=== PATIENT | male | born 1940 | race Caucasian/White ===

== ENCOUNTER 2024-06-28 23:39 | Inpatient (IN) | payer OTHER, MEDICARE, MEDICAID ==
[~2024-06-28] VITALS: Ht 177.8 cm; Wt 61.0 kg
[2024-06-29] MEDS: heparin 25,000 UNIT/250ml bag 250 ML IV PRN ×2 (00:14→18:38)
[2024-06-29] MEDS: MESSAGE TO NURSING IV ONE ×3 (00:16→18:03)
[2024-06-29 00:26] LABS: BASOPHILS # (AUTO) 0.1 X10'3 (0-0.2); BASOPHILS % (AUTO) 0.5 % (0-1); EOSINOPHILS % (AUTO) 0.3 % (0-6); HEMATOCRIT 36.4 % (42.0-52.0); HEMOGLOBIN 12.4 g/dl (14.0-17.9); MEAN CORPUSCULAR HEMOGLOBIN 32.5 PG (27.0-31.0); MEAN CORPUSCULAR HGB CONC 34.2 g/dL (33.0-36.5); MONOCYTES # (AUTO) 1.2 X10'3 (0-0.9); MONOCYTES % (AUTO) 12.3 % (2-12); NEUTROPHILS # (AUTO) 6.7 X10'3 (1.8-7.7); NEUTROPHILS % (AUTO) 66.9 % (42-75); PLATELET COUNT 172 X10'3 (140-440); RED BLOOD COUNT 3.83 X10'6 (4.70-6.10); WHITE BLOOD COUNT 10.1 X10'3 (4.5-11.0)
[2024-06-29 00:44] LABS: ALBUMIN 3.6 G/DL (3.4-5.0); ANION GAP 9 (8-16); BLOOD UREA NITROGEN 28 MG/DL (7-18); BUN/CREATININE RATIO 19.9 (10.0-20.0); CALCIUM 8.5 MG/DL (8.5-10.1); CHLORIDE 104 MMOL/L (99-107); CREATININE 1.41 MG/DL (0.60-1.10); GLUCOSE 96 MG/DL (70-104); MAGNESIUM 1.7 MG/DL (1.5-2.4); POTASSIUM 4.2 MMOL/L (3.5-5.1); PRO BRAIN NATRIURETIC PEPTIDE 10118 PG/ML (0-450); SODIUM 141 MMOL/L (135-145); TOTAL CARBON DIOXIDE 28.1 MMOL/L (24-32); eCRCL 33 ML/MIN; eGFR 48 ML/MIN
[2024-06-29 00:54] LABS: PROTHROMBIN TIME 10.8 SECONDS (9.0-12.0)
[2024-06-29] MEDS ORDERED: magnesium hydroxide 30ml (MOM) UD suspension PO PRN (00:55)
[2024-06-29] MEDS ORDERED: potassium Cl 20 mEq SR tablet PO PRN ×2 (00:55)
[2024-06-29] MEDS ORDERED: magnesium sulf-water 2g/50mL 50 ML IV PRN (00:55)
[2024-06-29] MEDS ORDERED: ondansetron/PF 4mg/2ml inj IV PRN (00:55)
[2024-06-29] MEDS ORDERED: magnesium sulf-water 4G/100mL 100 ML IV PRN (00:55)
[2024-06-29] MEDS ORDERED: magnesium Cl slow-release 64mg tablet PO PRN (00:55)
[2024-06-29] MEDS ORDERED: mag hydrox/Alum hydrox/simeth 30ml oral suspension PO PRN (00:55)
[2024-06-29] MEDS ORDERED: acetaminophen 325mg tablet PO PRN (00:55)
[2024-06-29 00:56] LABS: APTT 38 SECONDS (22-32)
[2024-06-29] MEDS: heparin 10,000 units/1 ML INJ IV PRN (01:33)
[2024-06-29] MEDS ORDERED: LISI20TA28 PO (01:54)
[2024-06-29] MEDS ORDERED: FERR325T28 PO (01:54)
[2024-06-29] MEDS ORDERED: [UNRECOGNIZED DRUG - CODE] (01:54)
[2024-06-29] MEDS ORDERED: FISH1CAP17 PO (01:54)
[2024-06-29] MEDS ORDERED: AMLO2.5T2 PO (01:54)
[2024-06-29] MEDS ORDERED: ALEN70TA19 PO (01:54)
[2024-06-29] MEDS ORDERED: ZINC220T4 PO (01:54)
[2024-06-29] MEDS ORDERED: MEMA10TA22 PO (01:54)
[2024-06-29] MEDS: haloperidol lactate 5mg/ml inj IM ONE ×2 (02:30→11:10)
[2024-06-29] MEDS ORDERED: nitroGLYCERIN 0.4mg SUBLingual tab SL PRN (02:40)
[2024-06-29] MEDS ORDERED: non-formulary drug (Alendronate Sodium (Fosamax) 1 TAB) PO SCH (02:40)
[2024-06-29 03:09] LABS: FERRITIN 273 NG/ML (26-388)
[2024-06-29 03:30] LABS: BILIRUBIN,URINE NEGATIVE (Neg); CLARITY,URINE CLEAR (Clear); COLOR,URINE YELLOW (Yellow); GLUCOSE, URINE NEGATIVE (Neg); KETONES,URINE NEGATIVE (Neg); LEUKOCYTE ESTERASE ,URINE NEGATIVE (Neg); NITRITES, URINE NEGATIVE (Neg); OCCULT BLOOD,URINE TRACE-INTACT (Neg); PROTEIN,URINE NEGATIVE (Neg); UROBILINOGEN,URINE 0.2 E.U/dL (0.2-1.0)
[2024-06-29 03:31] LABS: OSMOLALITY 302.5 MOSM/K (280-300)
[2024-06-29] MEDS: normal saline 1000ml 1,000 ML IV SCH (03:31)
[2024-06-29 03:38] LABS: UA COLLECTION TYPE CLN CATCH MIDSTREAM
[2024-06-29 03:39] LABS: BACTERIA,URINE FEW /HPF (Neg); RBC,URINE 0-2 /HPF (0-2); SQUAMOUS EPITHELIAL CELL,UR FEW /LPF (FEW); WBC,URINE 0-4 /HPF (0-4)
[2024-06-29 03:40] LABS: BASOPHILS % (AUTO) 0.5 % (0-1); EOSINOPHILS % (AUTO) 0.3 % (0-6); HEMOGLOBIN 12.2 g/dl (14.0-17.9); LYMPHOCYTES # (AUTO) 1.6 X10'3 (1.1-4.8); LYMPHOCYTES % (AUTO) 17.9 % (21-51); MEAN CORPUSCULAR HEMOGLOBIN 32.1 PG (27.0-31.0); MEAN CORPUSCULAR HGB CONC 33.9 g/dL (33.0-36.5); MEAN CORPUSCULAR VOLUME 94.8 FL (78-98); MEAN PLATELET VOLUME 7.9 FL (7.4-10.4); MONOCYTES # (AUTO) 1.1 X10'3 (0-0.9); NEUTROPHILS # (AUTO) 6.1 X10'3 (1.8-7.7); NEUTROPHILS % (AUTO) 69.3 % (42-75); PLATELET COUNT 169 X10'3 (140-440); WHITE BLOOD COUNT 8.8 X10'3 (4.5-11.0)
[2024-06-29 03:57] LABS: UA EOSINOPHILS NO EOS /HPF
[2024-06-29 03:59] LABS: MAGNESIUM 1.8 MG/DL (1.5-2.4); POTASSIUM 3.7 MMOL/L (3.5-5.1)
[2024-06-29 04:01] LABS: % IRON SATURATION 23 % (11-46); IRON 62 UG/DL (53-167); TOTAL IRON BINDING CAPACITY 272 UG/DL (259-388)
[2024-06-29] MEDS: normal saline 500ml IV soln 500 ML IV ONE (07:38)
[2024-06-29] MEDS ORDERED: iohexol 350MG/ML 100ml bottle IV ONE (07:45)
[2024-06-29] MEDS ORDERED: FISH OIL PO SCH (08:00)
[2024-06-29] MEDS: K and/or MAG REPLACEMENT MC SCH (08:00)
[2024-06-29] MEDS: docusate sod 100mg capsule PO SCH (08:00)
[2024-06-29] MEDS ORDERED: [UNRECOGNIZED DRUG - OTHER] PO SCH (08:00)
[2024-06-29] MEDS ORDERED: BORAGE PO SCH (08:00)
[2024-06-29] MEDS ORDERED: FLAX PO SCH (08:00)
[2024-06-29] MEDS: pantoprazole 40 MG vial IV SCH (08:19)
[2024-06-29 08:43] LABS: CREATINE KINASE 1497 U/L (39-308)
[2024-06-29] MEDS: amLODIPine 5mg tablet PO SCH (09:20)
[2024-06-29] MEDS: aspirin 81mg, enteric-coated 1 TAB TABLET.DR PO SCH (09:22)
[2024-06-29] MEDS: lisinopril 20mg tablet PO SCH (09:23)
[2024-06-29] MEDS: ferrous sulfate 325mg tablet PO SCH (09:24)
[2024-06-29] MEDS: atorvastatin 20mg tablet PO SCH (09:46)
[2024-06-29] MEDS: memantine 5mg tablet PO SCH (09:46)
[2024-06-30] MEDS: LORazepam 2 mg/ml vial IV ONE (01:05)
[2024-06-30] MEDS: MESSAGE TO NURSING IV ONE (07:34)
[2024-06-30 08:21] LABS: BASOPHILS # (AUTO) 0.1 X10'3 (0-0.2); BASOPHILS % (AUTO) 0.6 % (0-1); EOSINOPHILS % (AUTO) 0.5 % (0-6); HEMATOCRIT 33.8 % (42.0-52.0); HEMOGLOBIN 11.7 g/dl (14.0-17.9); LYMPHOCYTES # (AUTO) 1.4 X10'3 (1.1-4.8); LYMPHOCYTES % (AUTO) 14.4 % (21-51); MEAN CORPUSCULAR HEMOGLOBIN 32.5 PG (27.0-31.0); MEAN CORPUSCULAR HGB CONC 34.4 g/dL (33.0-36.5); MEAN CORPUSCULAR VOLUME 94.5 FL (78-98); MEAN PLATELET VOLUME 7.9 FL (7.4-10.4); MONOCYTES # (AUTO) 1.1 X10'3 (0-0.9); MONOCYTES % (AUTO) 11.8 % (2-12); NEUTROPHILS # (AUTO) 6.9 X10'3 (1.8-7.7); NEUTROPHILS % (AUTO) 72.7 % (42-75); PLATELET COUNT 180 X10'3 (140-440); RED BLOOD COUNT 3.58 X10'6 (4.70-6.10); RED CELL DISTRIBUTION WIDTH 13.9 % (11.5-14.5); WHITE BLOOD COUNT 9.4 X10'3 (4.5-11.0)
[2024-06-30 08:52] LABS: ALANINE AMINOTRANSFERASE 49 U/L (12-78); ALBUMIN 3.2 G/DL (3.4-5.0); ALBUMIN/GLOBULIN RATIO 1.1 (1.1-1.5); ALKALINE PHOSPHATASE 75 IU/L (46-116); ANION GAP 15 (8-16); ASPARTATE AMINO TRANSFERASE 138 U/L (10-37); BILIRUBIN,TOTAL 1.2 MG/DL (0.1-1.0); BLOOD UREA NITROGEN 22 MG/DL (7-18); BUN/CREATININE RATIO 19.8 (10.0-20.0); CALCIUM 8.6 MG/DL (8.5-10.1); CHLORIDE 108 MMOL/L (99-107); CREATININE 1.11 MG/DL (0.60-1.10); GLUCOSE 79 MG/DL (70-104); MAGNESIUM 1.6 MG/DL (1.5-2.4); POTASSIUM 3.4 MMOL/L (3.5-5.1); SODIUM 148 MMOL/L (135-145); TOTAL CARBON DIOXIDE 25.5 MMOL/L (24-32); eCRCL 42 ML/MIN; eGFR 63 ML/MIN
[2024-06-30 13:04] LABS: CHOL/HDL RATIO 2.1 (0.00-4.99); CHOLESTEROL 139 MG/DL (0-200); HDL CHOLESTEROL 66 MG/DL (35-60); LDL CHOLESTEROL 55 MG/DL (50-100); TRIGLYCERIDES 82 MG/DL (20-135)
[2024-06-30 14:00] VITALS: RESP 16; O2SAT 100
[2024-06-30 15:46] VITALS: BP 109/75; PULSE 62; RESP 16; TEMP 97; O2SAT 62
[2024-06-30 16:00] VITALS: BP 149/73; PULSE 63; RESP 13; TEMP 97.5; O2SAT 96
[2024-06-30 18:00] VITALS: BP 111/62; PULSE 61; RESP 16; TEMP 97.5; O2SAT 97
[2024-06-30 20:00] VITALS: RESP 16; O2SAT 97
[2024-06-30 22:00] VITALS: BP 143/79; PULSE 63; RESP 16; TEMP 98; O2SAT 96
[2024-06-30] MEDS: enoxaparin 100mg/ml syringe SUBCUT SCH (22:06)
[2024-06-30] MEDS: potassium Cl 40MEQ/1/2NS 520ml 520 ML IV PRN (23:00)
[2024-07-01 02:00] VITALS: BP 134/57; PULSE 74; RESP 13; TEMP 97.9; O2SAT 95
[2024-07-01 06:21] LABS: BASOPHILS # (AUTO) 0.1 X10'3 (0-0.2); BASOPHILS % (AUTO) 0.9 % (0-1); EOSINOPHILS # (AUTO) 0.1 X10'3 (0-0.9); EOSINOPHILS % (AUTO) 1.5 % (0-6); HEMATOCRIT 34.4 % (42.0-52.0); HEMOGLOBIN 11.9 g/dl (14.0-17.9); LYMPHOCYTES # (AUTO) 1.4 X10'3 (1.1-4.8); LYMPHOCYTES % (AUTO) 17.8 % (21-51); MEAN CORPUSCULAR HEMOGLOBIN 32.7 PG (27.0-31.0); MEAN CORPUSCULAR HGB CONC 34.7 g/dL (33.0-36.5); MEAN CORPUSCULAR VOLUME 94.2 FL (78-98); MONOCYTES # (AUTO) 0.9 X10'3 (0-0.9); NEUTROPHILS # (AUTO) 5.4 X10'3 (1.8-7.7); NEUTROPHILS % (AUTO) 68.8 % (42-75); PLATELET COUNT 182 X10'3 (140-440); RED BLOOD COUNT 3.65 X10'6 (4.70-6.10); RED CELL DISTRIBUTION WIDTH 13.6 % (11.5-14.5); WHITE BLOOD COUNT 7.8 X10'3 (4.5-11.0)
[2024-07-01 06:55] LABS: ALANINE AMINOTRANSFERASE 40 U/L (12-78); ALBUMIN 2.8 G/DL (3.4-5.0); ALKALINE PHOSPHATASE 69 IU/L (46-116); ANION GAP 11 (8-16); ASPARTATE AMINO TRANSFERASE 84 U/L (10-37); BILIRUBIN,TOTAL 1.2 MG/DL (0.1-1.0); BLOOD UREA NITROGEN 22 MG/DL (7-18); BUN/CREATININE RATIO 21.6 (10.0-20.0); CALCIUM 8.2 MG/DL (8.5-10.1); CHLORIDE 108 MMOL/L (99-107); CREATININE 1.02 MG/DL (0.60-1.10); GLUCOSE 56 MG/DL (70-104); MAGNESIUM 1.6 MG/DL (1.5-2.4); SODIUM 143 MMOL/L (135-145); TOTAL CARBON DIOXIDE 23.6 MMOL/L (24-32); TOTAL PROTEIN 5.6 G/DL (6.4-8.2); eCRCL 46 ML/MIN; eGFR 69 ML/MIN
[2024-07-01 06:58] LABS: POTASSIUM 3.8 MMOL/L (3.5-5.1)
[2024-07-01 08:00] VITALS: RESP 16; O2SAT 97
[2024-07-01] MEDS: clopidogrel 75mg tablet PO SCH (08:00)
[2024-07-01] MEDS: metoprolol tartrate 12.5mg (1/2 tablet) PO SCH (08:00)
[2024-07-01] MEDS: haloperidol lactate 5mg/ml inj IM ONE (09:19)
[2024-07-01 11:00] VITALS: BP 141/67; PULSE 64; RESP 16; TEMP 97.6; O2SAT 97
[2024-07-01 15:00] VITALS: BP 131/59; PULSE 56; RESP 12; TEMP 97.2; O2SAT 98
[2024-07-01] MEDS ORDERED: METO25TA6 PO (17:13)
[2024-07-01] MEDS ORDERED: CLOP-32 PO (17:13)
[2024-07-01] MEDS ORDERED: ASPI81TA52 PO (17:13)
[2024-07-01] MEDS ORDERED: FURO-150 PO (17:13)
== END 2024-07-01 16:32 | disposition home or self-care (01) | DRG 280 ==
LOC: ER 23:40 → ED HOLD 06-29 01:05 → PCU 3S 06-30 15:30
PROVIDERS: ADMIT Surgery Surgical Critical Care; ATTEND Internal Medicine
DX: I21.4 Non-ST elevation (NSTEMI) myocardial infarction (principal); I50.21 Acute systolic (congestive) heart failure; N17.9 Acute kidney failure, unspecified; D64.9 Anemia, unspecified; I11.0 Hypertensive heart disease with heart failure; F03.90 Unspecified dementia, unspecified severity, without behavioral disturbance, psychotic disturbance, mood disturbance, and anxiety; Z66 Do not resuscitate; N40.0 Benign prostatic hyperplasia without lower urinary tract symptoms; E86.0 Dehydration; S00.81XA Abrasion of other part of head, initial encounter; S40.812A Abrasion of left upper arm, initial encounter; S40.811A Abrasion of right upper arm, initial encounter; X58.XXXA Exposure to other specified factors, initial encounter; Y93.89 Activity, other specified; Y92.89 Other specified places as the place of occurrence of the external cause; Y99.8 Other external cause status; Z86.73 Personal history of transient ischemic attack (TIA), and cerebral infarction without residual deficits; Z79.02 Long term (current) use of antithrombotics/antiplatelets; Z79.899 Other long term (current) drug therapy
CPT/HCPCS: 36415; 80048; 80053; 80061; 81001; 82550; 82570; 82728; 83540; 83550; 83735; 83880; 83930; 83935; 84132; 84156; 84300; 84484; 85025; 85610; 85730; 87081; 87207; 93005; 93306; 97161; 97530; 99291; A6213; A6590; G0378; J1630; J1644; J1650; J2060; J2470; J3480; J7030; J7040; Q9967